=== PATIENT | female | born 1970 | race Caucasian/White ===

== ENCOUNTER 2016-09-29 07:26 | Emergency (ER) | payer BC ==
[2011-03-17 07:43] VITALS: BMI 31.5
[2016-09-29 08:16] LABS: BASOPHILS 0.2 % (0-2); EOSINOPHILS 2.7 % (0-7); HEMATOCRIT 40.3 % (36.0-48.0); HEMOGLOBIN 13.9 g/dL (12-16); LYMPHOCYTES 32.7 % (15-50); MCH 29.6 pg (26.0-34.0); MCHC 34.5 g/dL (31.0-37.0); MCV 85.9 fL (80.0-100.0); MEAN PLATELET VOLUME 9.6 fL (7.4-10.4); MONOCYTES 8.4 % (2-11); PLATELET COUNT 234 10x3/uL (130-400); RBC 4.69 10x6/uL (4.00-5.40); RDW 12.4 % (11.5-14.5); WBC 6.6 10x3/uL (4.8-10.8)
[2016-09-29 08:31] LABS: APPEARANCE HAZY (CLEAR); BILIRUBIN NEGATIVE (NEGATIVE); COLOR YELLOW (YELLOW); GLUCOSE NEGATIVE (NEGATIVE); KETONE NEGATIVE (NEGATIVE); LEUKOCYTE ESTERASE TRACE (NEGATIVE); NITRITE NEGATIVE (NEGATIVE); PROTEIN NEGATIVE (NEGATIVE); SPECIFIC GRAVITY 1.005 (1.005-1.020); UROBILINOGEN NORMAL (NORMAL)
[2016-09-29 08:32] LABS: BACTERIA MANY /hpf (NONE SEEN); HYALINE CAST 0-5 /lpf (NONE SEEN); MUCUS <1+ /lpf (NONE SEEN); RED CELLS - URINE RARE /hpf (0-5); WHITE CELLS - URINE 0-5 /hpf (0-5)
[2016-09-29 08:36] LABS: ALBUMIN 3.6 g/dL (3.4-5.0); ANION GAP 11.4 mmol/L (8-16); BILIRUBIN - TOTAL 0.38 mg/dL (0.2-1.3); CALCIUM 9.4 mg/dL (8.5-10.1); CARBON DIOXIDE 28.6 mmol/L (21.0-32.0); CREATININE - SERUM 0.9 mg/dL (0.6-1.3); PROTEIN - SERUM 7.5 g/dL (6.4-8.2)
== END 2016-09-29 10:53 | disposition home or self-care (01) ==
LOC: D.ER 07:26
PROVIDERS: Emergency Medicine
DX: N23 Unspecified renal colic (principal); M51.26 Other intervertebral disc displacement, lumbar region; J45.909 Unspecified asthma, uncomplicated

== ENCOUNTER → 2017-02-07 13:41 | Outpatient (CLI) | payer BC ==
[2011-03-17 07:43] VITALS: BMI 31.5
== END | disposition home or self-care (01) ==
LOC: D.US 13:00
DX: R13.10 Dysphagia, unspecified (principal); E04.1 Nontoxic single thyroid nodule

== ENCOUNTER 2018-09-14 19:00 | Outpatient (CLI) | payer BC ==
[2011-03-17 07:43] VITALS: BMI 31.5
== END 2018-09-14 23:59 | disposition home or self-care (01) ==
LOC: D.MAMMO 19:00
PROVIDERS: ATTEND Family Medicine
DX: Z12.31 Encounter for screening mammogram for malignant neoplasm of breast (principal)

== ENCOUNTER → 2018-10-04 17:20 | Outpatient (CLI) | payer BC ==
[2011-03-17 07:43] VITALS: BMI 31.5
== END | disposition home or self-care (01) ==
LOC: D.MAMMO 13:30
PROVIDERS: ATTEND Family Medicine
DX: R92.8 Other abnormal and inconclusive findings on diagnostic imaging of breast (principal)

== ENCOUNTER 2019-11-07 08:09 | Emergency (ER) | payer BC ==
[~2019-11-07] VITALS: Ht 170.2 cm; Wt 78.6 kg
[2019-11-07 08:18] VITALS: Ht 170.2 cm; Wt 78.6 kg
[2019-11-07] MEDS ORDERED: ESTRACE1 MG PO (08:20)
[2019-11-07] MEDS ORDERED: PROTONIX40 MG PO (08:20)
[2019-11-07] MEDS ORDERED: VITAMIN D5000 UNI1 PO (08:21)
[2019-11-07] MEDS ORDERED: ADHD MED (08:21)
[2019-11-07] MEDS ORDERED: HYDROCODON-ACE1 EAC2 PO (10:10)
[2019-11-07] MEDS ORDERED: NAPROSYN500 MG PO (10:10)
[2019-11-07] MEDS ORDERED: CARAFATE1 G/10 ML PO (10:10)
[2019-11-07 10:34] VITALS: BP 131/70
== END 2019-11-07 11:31 | disposition home or self-care (01) ==
LOC: D.ER 08:09
DX: M94.0 Chondrocostal junction syndrome [Tietze] (principal); J45.909 Unspecified asthma, uncomplicated; K21.9 Gastro-esophageal reflux disease without esophagitis; M54.9 Dorsalgia, unspecified

== ENCOUNTER 2020-11-04 16:15 | Outpatient (CLI) | payer BC ==
[2019-11-07 08:18] VITALS: BMI 27.1
[~2020-11-04 16:15] MED LIST: ADHD MED; CARAFATE1 G/10 ML PO; ESTRACE1 MG PO; HYDROCODON-ACE1 EAC2 PO; NAPROSYN500 MG PO; PROTONIX40 MG PO; VITAMIN D5000 UNI1 PO
== END 2020-11-04 23:59 ==
LOC: D.MAMMO 16:15
PROVIDERS: ATTEND Family Medicine
DX: Z12.31 Encounter for screening mammogram for malignant neoplasm of breast (principal)